=== PATIENT | female | born 1980 | race Caucasian/White ===

== ENCOUNTER 2024-10-15 12:08 | Outpatient (OUT) | payer OTHER, SELFPAY ==
--- OUTSIDE RECORDS SUMMARY | 2024-10-15 12:18 | XMS_ITS | Encounter Summary ---
Author Organization [employer] [facility] Address [id number] [address] [place] [address] Care Team Providers Care Filling Station Attendant Name Role Phone Eri Canseco DO Primary Care Provider [phone] Reason for Visit * Reason Comments Med Refill Encounter Details Date Type Department Care Team (Late st Contact Info) Description 08/23/2018 Refill [facility]ne[facility] [address] [place] [address] Yaneth Nur DO [address] [facility] [place] [address] Social History Tobacco Use Types Packs/Day Years Used Date Smoking Tobacco: Never Smokeless Tobacco: Never Alcohol Use Standard Drinks/Week Comments Yes 0 (1 standard drink = 0.6 oz pur e alcohol) Childcare Answer Date Recorded Childcare Unknown 07/15/2018 Employment Answer Date Recorded Employment Unknown 07/15/2018 Comments Unknown Sex and Gender Information Value Date Recorded Sex Assigned at Not on file Legal Sex Female 6:40 PM EDT Gender Identity Not on file Sexual Orientation Not on file documented as of this encounter Plan of Treatment Not on file documented as of this encounter Visit Diagnoses Not on filedocumented in this encounter Additional Health Concerns Assessment Noted Time A Body Mass Index follow-up plan has been documented for the patient 11/29/2016 4:13 PM EDT documented as of this encounter Care Teams Filling Station Attendant Relationship Specialty Start Date End Date Eri Canseco DO [address] [place] [address] PCP - General Family Medicine 06/09/19 06/27/22 documented as of this encounter
--- OUTSIDE RECORDS SUMMARY | 2024-10-15 12:18 | XMS_ITS | Clinical Summary ---
Author Organization [facility] Healthcare Address [address] [place] [address] Care Team Providers Care Ocular Care Aide Name Role Phone Unavailable Primary Care Provider Unavailabl e Social History Tobacco Use Types Packs/Day Years Used Date Smoking Tobacco: Never Assessed Comments Unknown Sex and Gender Information Value Date Recorded Sex Assigned at Not on file Legal Sex Female 11:39 PM EDT Gender Identity Not on file Sexual Orientation Not on file Last Filed Vital Signs Vital Sign Reading Time Taken Comments Blood Pressure 132/88 01/10/2022 12:00 PM EDT Pulse - - Temperature - - Respiratory Rate - - Oxygen Saturation - - Inhaled Oxygen Concentration - - Weight 73.9 kg (163 lb) 02/16/2022 12:00 PM EDT Height 170.2 cm (5' 7 ) 02/16/2022 12:00 PM EDT Body Mass Index 25.53 02/16/2022 12:00 PM EDT Plan of Treatment Not on file
--- NOTE | 2024-10-15 12:21 | XR_ITS ---
[facility] [place] [id number] Patient Name: YON MERCER MRN: [id number] date: 1980 Sex: F Assigned Patient Location: [facility] Current Patient Location: [facility] Accession/Order Number: [id number] Exam Date: 10/15/2024 13:42 Report Date: 10/15/2024 13:43 At the request of: CRISTIN FAIRBANKS DO Procedure: XR hip RT 2V w/ pelvis Right hip 2 views with one view pelvis. Reason for exam: Chronic right hip pain. COMPARISON: None. FINDINGS: Mild degenerative changes of the hips without acute bony process. XR/XR hip RT 2V w/ pelvis IMPRESSION: Mild degenerative changes of the hips without acute bony process. Impression dictated by: Noé Chowdhury Jr. DDeyaniraODeyanira 10/15/2024 1:43 PM Dictation Location: [place] [address] Electronically authenticated by: [id number] Date: 10/15/2024 13:43
== END 2024-10-15 12:09 | disposition home or self-care (01) ==
LOC: RAD 12:16
DX: M25.551 Pain in right hip (principal)
CPT/HCPCS: 73502